=== PATIENT | female | born 1965 | race Caucasian/White ===

== ENCOUNTER 2021-05-07 18:00 | Emergency (ER) | payer BC, OTHER ==
[~2021-05-07] VITALS: Ht 170.2 cm; Wt 77.1 kg
[2021-05-07] MEDS ORDERED: PERCOCET 5-3251 EACH PO (20:53)
[2021-05-07 21:15] VITALS: BP 132/67
== END 2021-05-07 21:15 | disposition home or self-care (01) ==
LOC: ER 18:00
DX: S81.012A Laceration without foreign body, left knee, initial encounter (principal); W10.8XXA Fall (on) (from) other stairs and steps, initial encounter; Y93.89 Activity, other specified; Y92.89 Other specified places as the place of occurrence of the external cause; Y99.8 Other external cause status